=== PATIENT | female | born 1955 | race Caucasian/White ===

== ENCOUNTER 2021-05-16 17:28 | Emergency (ER) | payer BC ==
[~2021-05-16] VITALS: Ht 162.6 cm; Wt 100.7 kg
[2021-05-16 19:35] LABS: ABSOLUTE NEUTROPHILS 5.8 thou/uL (1.4-8.2); BASOPHILS 0.9 % (0.0-2.0); EOSINOPHILS 2.9 % (0.0-3.0); HEMATOCRIT 39.3 % (37.0-47.0); HEMOGLOBIN 13.1 gm/dL (12.0-15.0); LYMPHOCYTES 26.5 % (24.0-44.0); MCH 28.5 pg (26.0-34.0); MCHC 33.4 g/dL (28.0-37.0); MCV 85.2 fL (80.0-100.0); MONOCYTES 8.1 % (1.0-8.0); PLATELET COUNT 294 thou/uL (150-400); POLYS 61.6 % (36.0-66.0); RBC 4.61 mil/uL (4.20-5.00); RDW 14.7 % (10.5-14.5); WBC 9.5 thou/uL (4.0-11.0)
[2021-05-16 19:51] LABS: CALCIUM 9.6 mg/dL (8.5-10.1); CREATININE 0.8 mg/dL (0.6-1.0); POTASSIUM 3.9 mmol/L (3.5-5.1)
[2021-05-16 20:01] LABS: ALBUMIN 3.5 g/dL (3.4-5.0); TOTAL BILIRUBIN 0.3 mg/dL (0.2-1.0); TOTAL PROTEIN 7.2 g/dL (6.4-8.2)
[2021-05-16] MEDS ORDERED: TRAMADOL 50 MG50 MG PO (21:06)
--- NOTE | 2021-05-17 07:17 | EKG ---
[address] [place] [address] ELECTROCARDIOGRAM REPORT Name: ANDREY MEEKS Room #: [facility]#: [id number] Admission: 05/16/21 Attend Phys: Discharge: Date of : 55 Report #: [id number] [facility] ED Test Date: 2021-05-16 Test Time: 19:36:21 Pat Name: ANDREY MEEKS Department: Room: Gender: F Machine Stuffer Automatic: ROSALIA : 1955 Requested By: Erick Carvajal Order Number: [id number] MD: Arden Cali Measurements Intervals [place] Rate: 104 P: 58 UT: 167 QRS: 18 QRSD: 91 T: 58 QT: 333 QTc: 438 Interpretive Statements Sinus tachycardia Left atrial enlargement Anteroseptal infarct, age indeterminate Baseline wander in lead(s) V5 No previous ECG available for comparison Electronically Signed On 05-17-2021 7:17:37 [employer] by Arden Cali [email or web address] <ELECTRONICALLY SIGNED> By: Arden Cali MD, [facility] 05/17/21 0717 1936 35 Arden Cali MD, FACC /EPI
[2021-05-17 07:58] VITALS: BP 176/70
== END 2021-05-16 21:40 | disposition home or self-care (01) ==
LOC: ER 17:28
PROVIDERS: Emergency Medicine
DX: M25.551 Pain in right hip (principal); I10 Essential (primary) hypertension; E11.65 Type 2 diabetes mellitus with hyperglycemia; M19.90 Unspecified osteoarthritis, unspecified site; Z88.0 Allergy status to penicillin; Z88.8 Allergy status to other drugs, medicaments and biological substances